=== PATIENT | female | born 1945 | race Caucasian/White ===

== ENCOUNTER → 2023-12-30 10:25 | Outpatient (REF) | payer MEDICARE, OTHER, SELFPAY | LOC: WDC 10:25 | PROVIDERS: ATTENDING PHYSICIAN Internal Medicine | DX: Z12.31 Encounter for screening mammogram for malignant neoplasm of breast (principal) | CPT/HCPCS: 77063; 77067 ==

== ENCOUNTER → 2024-02-23 13:28 | Outpatient (REF) | payer MEDICARE, OTHER, SELFPAY ==
[2024-02-23 14:42] LABS: Free T3 2.88 pg/ml (2.77-5.27)
[2024-02-23 14:56] LABS: TSH 0.16 uIU/ml (0.47-4.68)
[2024-02-26 00:05] LABS: Thyroid Stim. Immunoglobulin <0.10 IU/L (<=0.54)
[2024-02-26 02:20] LABS: TSH Receptor Antibody <1.10 IU/L (<=1.75)
== END ==
LOC: REG 13:28
PROVIDERS: ATTENDING PHYSICIAN Internal Medicine Endocrinology, Diabetes & Metabolism; FAMILY PHYSICIAN Internal Medicine
DX: E05.90 Thyrotoxicosis, unspecified without thyrotoxic crisis or storm (principal)
CPT/HCPCS: 36415; 83520; 84439; 84443; 84445; 84481

== ENCOUNTER → 2024-03-09 09:13 | Outpatient (REF) | payer MEDICARE, OTHER, SELFPAY | LOC: MRI 3T 09:13 | PROVIDERS: ATTENDING PHYSICIAN Physician Assistant Surgical; FAMILY PHYSICIAN Internal Medicine | DX: M25.572 Pain in left ankle and joints of left foot (principal) | CPT/HCPCS: 73721 ==

== ENCOUNTER → 2024-03-11 13:12 | Outpatient (REF) | payer MEDICARE, OTHER, SELFPAY | LOC: RAD 13:12 | PROVIDERS: ATTENDING PHYSICIAN Internal Medicine Endocrinology, Diabetes & Metabolism; FAMILY PHYSICIAN Internal Medicine | DX: E05.90 Thyrotoxicosis, unspecified without thyrotoxic crisis or storm (principal) | CPT/HCPCS: 76536 ==

== ENCOUNTER → 2024-03-31 10:11 | Outpatient (REF) | payer MEDICARE, OTHER, SELFPAY ==
[2024-03-31 10:48] VITALS: BP 142/71; BP_SYST 63
== END ==
LOC: RADI 10:11
PROVIDERS: ATTENDING PHYSICIAN Internal Medicine Endocrinology, Diabetes & Metabolism; FAMILY PHYSICIAN Internal Medicine
DX: E04.1 Nontoxic single thyroid nodule (principal)
CPT/HCPCS: 88173; 10005

== ENCOUNTER 2024-04-13 06:08 | Outpatient (RCR) | payer MEDICARE, OTHER, SELFPAY | END 2024-04-13 23:59 | disposition home or self-care (01) | LOC: RPT 06:08 | PROVIDERS: ATTENDING PHYSICIAN Student in an Organized Health Care Education/Training Program; FAMILY PHYSICIAN Internal Medicine | DX: M25.572 Pain in left ankle and joints of left foot (principal) | CPT/HCPCS: 97110; 97162 ==

== ENCOUNTER 2024-05-14 08:45 | Outpatient (RCR) | payer MEDICARE, OTHER, SELFPAY | END 2024-05-14 23:59 | disposition home or self-care (01) | LOC: RPT 08:45 | PROVIDERS: ATTENDING PHYSICIAN Student in an Organized Health Care Education/Training Program; FAMILY PHYSICIAN Internal Medicine | DX: M25.572 Pain in left ankle and joints of left foot (principal); Z73.6 Limitation of activities due to disability | CPT/HCPCS: 97010; 97110; 97112 ==

== ENCOUNTER 2024-05-19 09:11 | Outpatient (RCR) | payer MEDICARE, OTHER, SELFPAY | END 2024-05-19 10:06 | disposition home or self-care (01) | LOC: RPT 09:11 | PROVIDERS: ATTENDING PHYSICIAN Student in an Organized Health Care Education/Training Program; FAMILY PHYSICIAN Internal Medicine | DX: M25.572 Pain in left ankle and joints of left foot (principal); Z73.6 Limitation of activities due to disability; R26.2 Difficulty in walking, not elsewhere classified | CPT/HCPCS: 97110 ==

== ENCOUNTER → 2024-09-23 07:57 | Outpatient (REF) | payer MEDICARE, OTHER, SELFPAY ==
[2024-09-23 10:01] LABS: % Basophils 0.5 % (0-2); % Eosinophils 1.3 % (0-6); % Immature Granulocytes 0.3 % (0-0.5); % Monocytes 6.5 % (1.7-9.3); % Neutrophils 65.4 % (42.2-75.2); Absolute Eosinophils 0.1 10^3/uL (0-0.7); Absolute Lymphocytes 1.6 10^3/uL (1.2-3.4); Absolute Monocytes 0.4 10^3/uL (0.1-0.6); Absolute Neutrophils 4.1 10^3/uL (1.4-6.5); Hematocrit 42.4 % (37.0-47.0); Hemoglobin 13.1 g/dL (12.0-16.0); Mean Corp Hgb Conc. 30.9 g/dL (33.0-37.0); Mean Corpuscular Hgb 26.1 pg (27.0-31.0); Mean Corpuscular Volume 84.5 fL (81.0-99.0); Mean Platelet Volume 10.3 fL (7.4-10.4); Nucleated Red Blood Cells % 0 %; Platelet Count 277 10^3/uL (130-400); Red Blood Cell Count 5.02 10^6/uL (4.20-5.40); Red Cell Dist. Width 14.3 % (11.5-14.5); White Blood Cell Count 6.2 10^3/uL (4.8-10.8)
[2024-09-23 10:22] LABS: Erythrocyte Sed Rate 22 mm/hour (0-20)
[2024-09-23 11:11] LABS: ALT (SGPT) 23 U/L (0-35); AST (SGOT) 34 U/L (14-36); Albumin 4.1 g/dl (3.5-5.0); Alkaline Phosphatase 94 U/L (38-126); Blood Urea Nitrogen 14 mg/dl (7-17); Calcium 9.1 mg/dl (8.4-10.2); Carbon Dioxide 28 mmol/L (22-30); Chloride 103 mmol/L (98-107); Glucose 98 mg/dl (70-99); HDL Cholesterol 72 mg/dl; LDL Cholesterol, Calculated 63 mg/dl; Potassium 4.4 mmol/L (3.5-5.1); Sodium 140 mmol/L (135-145); Total Bilirubin 0.6 mg/dl (0.2-1.3); Total Cholesterol 145 mg/dl (50-199); Total Protein 7.3 g/dl (6.3-8.2); Triglyceride 53 mg/dl (10-149); Very Low Density Lipoprotein 10 mg/dl (0-30); eGFR > 60.00
[2024-09-23 13:31] LABS: Rheumatoid Agglutinin Less Than 10 IU (<10 IU)
[2024-09-24 21:17] LABS: ANA, IgG Reflex to HEp-2 None Detected (None Detected)
== END ==
LOC: REG 07:57
PROVIDERS: ATTENDING PHYSICIAN Internal Medicine
DX: E78.00 Pure hypercholesterolemia, unspecified (principal); E04.9 Nontoxic goiter, unspecified; M85.89 Other specified disorders of bone density and structure, multiple sites; Z13.820 Encounter for screening for osteoporosis; I10 Essential (primary) hypertension; Z86.0100 Personal history of colon polyps, unspecified; J31.0 Chronic rhinitis; M19.90 Unspecified osteoarthritis, unspecified site; Z00.00 Encounter for general adult medical examination without abnormal findings
CPT/HCPCS: 36415; 80053; 80061; 85025; 85652; 86038; 86430

== ENCOUNTER → 2024-09-24 13:33 | Outpatient (REF) | payer MEDICARE, OTHER, SELFPAY | LOC: RAD 13:33 | PROVIDERS: ATTENDING PHYSICIAN Internal Medicine | DX: E78.00 Pure hypercholesterolemia, unspecified (principal); E04.9 Nontoxic goiter, unspecified; M85.89 Other specified disorders of bone density and structure, multiple sites; Z13.820 Encounter for screening for osteoporosis; I10 Essential (primary) hypertension; Z86.0100 Personal history of colon polyps, unspecified; J31.0 Chronic rhinitis; M19.90 Unspecified osteoarthritis, unspecified site; Z00.00 Encounter for general adult medical examination without abnormal findings | CPT/HCPCS: 77080 ==

== ENCOUNTER → 2024-11-29 13:13 | Outpatient (REF) | payer MEDICARE, OTHER, SELFPAY ==
[2024-11-29 15:10] LABS: Vitamin D, 25-OH*** 38.3 ng/mL (30-80)
== END ==
LOC: REG 13:13
PROVIDERS: ATTENDING PHYSICIAN Internal Medicine
DX: M81.0 Age-related osteoporosis without current pathological fracture (principal)
CPT/HCPCS: 36415; 82306

== ENCOUNTER → 2024-12-30 14:04 | Outpatient (REF) | payer MEDICARE, OTHER, SELFPAY | LOC: WDC 14:04 | PROVIDERS: ATTENDING PHYSICIAN Internal Medicine | DX: Z12.31 Encounter for screening mammogram for malignant neoplasm of breast (principal) | CPT/HCPCS: 77063; 77067 ==

== ENCOUNTER → 2025-01-28 12:57 | Outpatient (REF) | payer MEDICARE, OTHER, SELFPAY | LOC: RAD 12:57 | PROVIDERS: ATTENDING PHYSICIAN Internal Medicine | DX: M25.572 Pain in left ankle and joints of left foot (principal) | CPT/HCPCS: 73610; 73630 ==

== ENCOUNTER → 2025-02-22 07:34 | Outpatient (REF) | payer MEDICARE, OTHER, SELFPAY | LOC: RAD 07:34 | PROVIDERS: ATTENDING PHYSICIAN Internal Medicine Endocrinology, Diabetes & Metabolism; FAMILY PHYSICIAN Internal Medicine | DX: E04.2 Nontoxic multinodular goiter (principal) | CPT/HCPCS: 76536 ==

== ENCOUNTER → 2025-06-29 13:17 | Outpatient (REF) | payer MEDICARE, OTHER, SELFPAY ==
[2025-06-29 13:30] VITALS: BP 149/85; BP_SYST 76
== END ==
LOC: RADI 13:17
PROVIDERS: ATTENDING PHYSICIAN Nurse Practitioner Family; FAMILY PHYSICIAN Internal Medicine
DX: E04.1 Nontoxic single thyroid nodule (principal)
CPT/HCPCS: 10005; 88173

== ENCOUNTER → 2025-08-26 07:23 | Outpatient (REF) | payer MEDICARE, OTHER, SELFPAY ==
[2025-08-26 08:13] LABS: Hematocrit 41.4 % (37.0-47.0); Hemoglobin 13.1 g/dL (12.0-16.0); Mean Corp Hgb Conc. 31.6 g/dL (33.0-37.0); Mean Corpuscular Volume 85.4 fL (81.0-99.0); Nucleated Red Blood Cells % 0 %; Platelet Count 292 10^3/uL (130-400); Red Cell Dist. Width 14.4 % (11.5-14.5)
[2025-08-26 08:36] LABS: ALT (SGPT) 29 U/L (0-35); AST (SGOT) 38 U/L (14-36); Albumin 4.3 g/dl (3.5-5.0); Alkaline Phosphatase 96 U/L (38-126); Blood Urea Nitrogen 11 mg/dl (7-17); Calcium 9.1 mg/dl (8.4-10.2); Carbon Dioxide 30 mmol/L (22-30); Chloride 103 mmol/L (98-107); Glucose 92 mg/dl (70-99); HDL Cholesterol 68 mg/dl; LDL Cholesterol, Calculated 71 mg/dl; Potassium 4.0 mmol/L (3.5-5.1); Sodium 137 mmol/L (135-145); Total Protein 7.9 g/dl (6.3-8.2); Very Low Density Lipoprotein 13 mg/dl (0-30); eGFR > 60.00
[2025-08-26 08:52] LABS: Vitamin D, 25-OH*** 48.8 ng/mL (30-80)
[2025-08-26 09:06] LABS: TSH 0.04 uIU/ml (0.47-4.68)
== END ==
LOC: REG 07:23
PROVIDERS: ATTENDING PHYSICIAN Internal Medicine
DX: R63.4 Abnormal weight loss (principal); M54.2 Cervicalgia; Z23 Encounter for immunization; E78.00 Pure hypercholesterolemia, unspecified; I10 Essential (primary) hypertension; I47.19 Other supraventricular tachycardia; M81.0 Age-related osteoporosis without current pathological fracture; Z00.00 Encounter for general adult medical examination without abnormal findings
CPT/HCPCS: 36415; 71046; 72050; 80053; 80061; 82306; 84443; 85025

== ENCOUNTER → 2025-08-27 07:29 | Outpatient (REF) | payer MEDICARE, OTHER, SELFPAY ==
[2025-08-27 08:27] LABS: Urine Character Clear (Clear)
[2025-08-27 08:54] LABS: Urine Red Blood Cell 0-2 /HPF (0-2); Urine White Cell 0-2 /HPF (0-5)
== END ==
LOC: REG 07:29
PROVIDERS: ATTENDING PHYSICIAN Internal Medicine
DX: Z23 Encounter for immunization (principal); E78.00 Pure hypercholesterolemia, unspecified; I10 Essential (primary) hypertension; I47.19 Other supraventricular tachycardia; M81.0 Age-related osteoporosis without current pathological fracture; R63.4 Abnormal weight loss; M54.2 Cervicalgia; Z00.00 Encounter for general adult medical examination without abnormal findings
CPT/HCPCS: 81003; 81015

== ENCOUNTER → 2025-09-14 06:57 | Outpatient (REF) | payer MEDICARE, OTHER, SELFPAY ==
[2025-09-14 09:08] LABS: Blood Urea Nitrogen 15 mg/dl (7-17); Calcium 9.0 mg/dl (8.4-10.2); Carbon Dioxide 31 mmol/L (22-30); Chloride 92 mmol/L (98-107); Glucose 105 mg/dl (70-99); Potassium 3.4 mmol/L (3.5-5.1); Sodium 132 mmol/L (135-145); eGFR > 60.00
== END ==
LOC: REG 06:57
PROVIDERS: ATTENDING PHYSICIAN Internal Medicine Interventional Cardiology; FAMILY PHYSICIAN Internal Medicine
DX: I10 Essential (primary) hypertension (principal)
CPT/HCPCS: 36415; 80048